=== PATIENT | male | born 1995 | race Asian ===

== ENCOUNTER 2021-10-08 08:00 | Outpatient (CLI) | payer OTHER ==
--- NOTE | 2021-10-08 09:05 | XRAY Report ---
PROCEDURE: Finger(s) RT INDICATIONS: Right third digit pain TECHNIQUE: AP hand, 2 views of the right third finger(s) acquired. COMPARISON: None FINDINGS: Bones: No fractures or dislocations. No suspicious bony lesions. Soft tissues: No suspicious soft tissue calcifications. IMPRESSION: No acute finding. Reviewed by: Pancho Burkett MD on 10/08/2021 9:04 AM PDT Approved by: Pancho Burkett MD on 10/08/2021 9:04 AM PDT Station ID: [id number]
== END 2021-10-08 23:59 | disposition home or self-care (01) ==
LOC: DI.N 08:00
PROVIDERS: ATTEND Nurse Practitioner
DX: M79.644 Pain in right finger(s) (principal)